=== PATIENT | male | born 1950 ===

== ENCOUNTER 2019-05-18 01:39 | Emergency (ER) | payer MEDICARE, MEDICAID ==
[2019-05-18] MEDS ORDERED: NS 0.9% 1000 ML** 2,000 ML IV ONE ×2 (02:35→04:51)
[2019-05-18 02:44] LABS: ABS Basophils 0.1 10^3/ul (0-0.2); ABS Eosinophils 0.3 10^3/ul (0-0.6); ABS Lymphocytes 4.9 10^3/ul (1.0-4.8); ABS Monocytes 0.9 10^3/ul (0-0.8); ABS Neutrophils 11.4 10^3/ul (1.5-7.7); Eosinophil % 1.8 %; Hematocrit 46 % (42-52); Hemoglobin 15.1 g/dL (14.0-18.0); Mean Corpuscular HGB Conc 33 g/dL (31-36); Mean Corpuscular Hemoglobin 31 pg (27-31); Mean Corpuscular Volume 95 fL (80-94); Mean Platelet Volume 10.3 fL (7.4-10.4); Platelet Count 217 10^3/uL (150-450); Red Blood Count 4.81 10^6 /uL (4.18-5.48); Red Cell Distribution Width 13 % (10-15); White Blood Count 17.7 10^3/uL (3.5-10.8)
[2019-05-18 02:46] LABS: Albumin 4.1 g/dL (3.2-5.2); Calcium 9.9 mg/dL (8.6-10.3); Total Bilirubin 0.7 mg/dL (0.2-1.0)
[2019-05-18 02:52] LABS: Albumin/Globulin Ratio 1.4 (1-3); BUN/Creatinine Ratio 17.3 (8-20); EGFR African American 80.5 (>60); EGFR Non-African American 66.6 (>60); Globulin 2.9 g/dL (2-4)
--- NOTE | 2019-05-18 02:53 | ED ---
Complex/Multi-Sys Presentation - HPI Summary HPI Summary: The patient is a 68 y/o M arriving by ambulance to [facility] accompanied by daughter with a chief complaint of RUE tremors and numbness beginning yesterday at 1200. There was also RUE numbness present. He states that it felt like someone was crushing his bones in the right arm, which is why he came here today. He additionally c/o high blood glucose likely over 500, but he hasnt been taking anti-hyperglycemics. He denies slurred speech, headache, or neck pain. He isn't sure if he had weakness at the time of the numbness. Speaks Chadian. PMHx: DM. Nonsmoker, no EtOH, no substance use. 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 Negative: Headache - Allergies/Home Medications Allergies/Adverse Reactions: Allergies Allergy/AdvReac Type Severity Reaction Status Date / Time No Known Allergies Allergy Verified 05/18/19 02:25 PMH/Surg Hx/FS Hx/Imm Hx Endocrine/Hematology History: Reports: Hx Diabetes Cardiovascular History: Denies: Hx Hypertension - Surgical History Surgical History: None Surgery Procedure, Year, and Place: none Infectious Disease History: Unable to Obtain/Confirm Infectious Disease History: Denies: Traveled Outside the [place] in Last 30 Days Review of Systems Positive: Other - elevated BG Positive: Other - NEGATIVE: neck pain Neurological: Other - right arm tremors and pain, unsure if he had weakness Positive: Numbness - in RUE and RLE. Negative: Headache, Slurred Speech All Other Systems Reviewed And Are Negative: Yes Physical Exam - Summary Physical Exam Summary: Appearance: Well-appearing, Well-nourished, lying in bed comfortably, Elderly man appears quite apprehensive, vital signs unremarkable except for mild tachycardia, Skin: Warm, dry, no obvious rash Eyes: sclera anicteric, no conjunctival pallor ENT: mucous membranes moist, pharynx appears normal Neck: Supple, nontender Respiratory: Clear to auscultation, no signs of respiratory distress Cardiovascular: Normal S1, S2. No murmurs. Normal distal pulses in tibial and radial bilaterally. Abdomen: Soft, nontender, normal active bowel sounds present Musculoskeletal: Normal, Strength/ROM Intact Neurological: A&Ox3, awake and alert, mentation is normal, Weakness in the RUE, Can raise it against gravity but is clearly weaker than the left with immediate drift, No apparent weakness to the lower extremities, Cranial nerves intact, No facial droop, Speech normal and fluent, Speaks Ch[place], Visual cardona are grossly intact full to confrontation. GCS: 15. NIH: 3. Psychiatric: affect is normal, does not appear anxious or depressed Triage Information Reviewed: Yes Vital Signs On Initial Exam: Initial Vitals Temp Pulse Resp BP Pulse Ox 97.8 F 101 20 179/103 94 05/18/19 01:40 05/18/19 01:40 05/18/19 01:40 05/18/19 01:40 05/18/19 01:40 Vital Signs Reviewed: Yes - [place] Coma Scale Best Eye Response: 4 - Spontaneous Best Motor Response: 6 - Obeys Commands Best Verbal Response: 5 - Oriented Coma Scale Total: 15 Diagnostics - Vital Signs Vital Signs Temp Pulse Resp BP Pulse Ox 05/18/19 02:15 105 22 127/85 89 05/18/19 02:00 104 16 93 05/18/19 01:45 100 19 148/98 93 05/18/19 01:44 106 22 94 05/18/19 01:40 97.8 F 101 20 179/103 94 - Laboratory Lab Results: Lab Results 05/18/19 Range/Units 02:21 POC Glucose (mg/dL) > 444 H* (70-100) mg/dL Result Diagrams: 05/18/19 02:20 05/18/19 02:20 Lab Statement: Any lab studies that have been ordered have been reviewed, and results considered in the medical decision making process. - CT Head/Neck CTA CT Interpretation Completed By: Radiologist Summary of CT Findings: Impression: 1. 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 The cortical enhancement in the left hemisphere appears less than in the right hemisphere. There is also a focal narrowing of the origin of the M1 segment. This is in the 70% range. 2. Multifocal areas of narrowing involving the A2 and distal segments of both anterior cerebral arteries. 3. Multifocal narrowing involving the right middle cerebral artery which are not hemodynamically significant. 4. 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 No hemodynamically significant narrowing of the cervical carotid arteries. 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 ED physician has reviewed this report. Brain CT CT Interpretation Completed By: Radiologist Summary of CT Findings: Impression: No acute intracranial abnormality. ED physician has reviewed this report. - EKG 0238 Cardiac Rate: Tachycardia - 109 bpm EKG Rhythm: Sinus Tachycardia Summary of EKG Findings: Sinus tachycardia at [address]-T wave changes diffusely. No STEMI. National Institutes Of Health - NIH Scale Level of Consciousness: Alert/Keenly Responsive Ask Patient the Month and His/Her Age: Both Correct Ask Pt to Open/Close Eyes and Treasury Manager/Release Non-Paretic Hand: Both Correctly Best Gaze (Only Horizontal Eye Movement): Normal Visual Field Testing: No Visual Loss Facial Paresis-Pt to Smile & Close Eyes or Grimace Symmetry: Normal/Symmetrical Motor Function - Right Arm: Effort Against Hopkins Motor Function - Left Arm: No Drift-Holds 10 Seconds Motor Function - Right Leg: No Drift-Holds 10 Seconds Motor Function - Left Leg: No Drift-Holds 10 Seconds Limb Ataxia-Must be out of Proportion to Weakness Present: Absent Sensory (Use Pinprick to Test Arms/Legs/Trunk/Face): Pinprick Less on Affected Best Language (Describe Picture, Name Items): No Aphasia Dysarthria (Read Several Words): Normal Extinction and Inattention: No Abnormality Total Score: 3 Re-Evaluation - Re-Evaluation First Eval Re-Evaluation Time: 05:25 Comment: I discussed transfer with the patient and his daughter. Second Eval Re-Evaluation Time: 05:40 Change: Improved Comment: Now has FROM in the RUE with minimal weakness compared to left. Complex Multi-Symp Course/Dx Course Of Treatment: Patient is a 68 y/o with cc of RUE numbness with development into RLE numbness starting yesterday at 1200 and severe pain in the RUE today without slurred speech. He is unsure if he had weakness at the time. Additionally c/o high blood glucose but has not been medication compliant with anti-hyperglycemics. Denies slurred speech, headache, or neck pain. Upon physical exam, the patient appears to be a quite apprehensive elderly man with unremarkable vital signs except for mild tachycardia; neuro exam reveals weakness in the RUE with ability to raise it against gravity but is clearly weaker than the left with immediate drift, no apparent weakness to the lower extremities, cranial nerves intact, no facial droop, speech normal and fluent, speaks Chadian, and visual cardona are grossly intact full to confrontation. GCS: 15. NIH: 3. Blood work reveals WBCs of 17.7, abs neuts of 11.4, chloride of 94, carbon dioxide of 14, anion gap of 23, glucose of 690, POC glucose of >444, and glucose meter confirm of 692. UA reveals 1+ ketones and 3+ glucose. In the ED course, the patient was administered fluids and Insulin. EKG at 0238 reveals sinus tachycardia at [address]-T wave changes diffusely. Brain CT impression is negative for abnormality. Head/ Neck CTA with contrast Impression: 1. 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 The cortical enhancement in the left hemisphere appears less than in the right hemisphere. There is also a focal narrowing of the origin of the M1 segment. This is in the 70% range. 2. Multifocal areas of narrowing involving the A2 and distal segments of both anterior cerebral arteries. 3. Multifocal narrowing involving the right middle cerebral artery which are not hemodynamically significant. 4. 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 No hemodynamically significant narrowing of the cervical carotid arteries. 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 I discussed the patient's case with the transfer center to consult [facility]; they will look at imaging reports and return the call. Dr. Susan Hair, neurology at [facility], who accepts the patient for transfer. Patient and his daughter agree with plan for transfer. Upon re-eval prior to transfer, the patient has improvement in FROM of the RUE with minimal changes compared to the LUE. 40 minutes of CCT. - Diagnoses Provider Diagnoses: CVA (cerebral vascular accident), DKA (diabetic ketoacidoses) - Physician Notifications Discussed Care Of Patient With: Transfer Center Time Discussed With Above Provider: 04:45 Instructed by Provider To: Transfer - I discussed the patient's case with the transfer center to consult [facility]. They will look at imaging reports and return the call. At 0515, I spoke with Dr. Susan Hair, neurology at [facility], who accepts the patient for transfer. Reason For Transfer: Patient not appropriate for [facility]. - Critical Care Time Critical Care Time: 30-74 min - 40 minutes Discharge - Sign-Out/Discharge Documenting (check all that apply): Patient Departure - Patient is accepted for admission to [facility] by Dr. Hair, neurology. Patient Received Moderate/Deep Sedation with Procedure: No - Discharge Plan Condition: Stable Disposition: TRANS HIGHER LVL OF CARE FAC Referrals: No Primary Care Phys,NOPCP [Primary Care Provider] - - Billing Disposition and Condition Condition: STABLE Disposition: Trans Higher Lvl of Care Fac - Attestation Statements Document Initiated by Scribe: Yes Documenting Scribe: Marleen Murillo Provider For Whom Scribe is Documenting (Include Credential): Dr. Nick Baca MD Scribe Attestation: IMarleen scribed for Dr. Nick Baca MD on 05/18/19 at 0650. Scribe Documentation Reviewed: Yes Provider Attestation: The documentation as recorded by the Marleen george accurately reflects the service I personally performed and the decisions made by me, Dr. Nick Baca MD Status of Scribe Document: Viewed
[2019-05-18 03:09] LABS: INR 0.85 (0.82-1.09)
[2019-05-18 03:13] LABS: Troponin I 0.01 ng/mL (<0.04)
[2019-05-18] MEDS ORDERED: Iohexol 350* (CONTRAST) 500 ML MDV IV ONE (03:14)
[2019-05-18 03:21] LABS: Urine Appearance Clear; Urine Bilirubin Negative (Negative); Urine Blood Negative (Negative); Urine Color Colorless; Urine Glucose 3+(>=500 mg/dL) (Negative); Urine Ketones 1+ (Negative); Urine Nitrite Negative (Negative); Urine Protein Negative (Negative); Urine Specific Gravity 1.026 (1.010-1.030); Urine Urobilinogen Negative (Negative)
[2019-05-18] MEDS ORDERED: Insulin Infusion 100unit/100mL 100 UNITS/100 ML UNIT IV SCH (05:30)
[2019-05-18] MEDS ORDERED: Dextrose 50% VIAL 50 ml ONE (07:29)
[2019-05-18 07:54] LABS: BUN/Creatinine Ratio 21.5 (8-20); Calcium 8.5 mg/dL (8.6-10.3); EGFR Non-African American 97.5 (>60)
[2019-05-18 08:05] VITALS: BP 146/72
== END 2019-05-18 08:03 | disposition short-term general hospital (02) ==
LOC: ED 01:39
DX: I63.9 Cerebral infarction, unspecified (principal); E11.10 Type 2 diabetes mellitus with ketoacidosis without coma; Z79.84 Long term (current) use of oral hypoglycemic drugs
CPT/HCPCS: 36415; 70450; 70496; 70498; 80048; 80053; 81003; 82947; 84484; 85025; 85610; 93005; 96360; 96361; 99285; J1815